=== PATIENT | male | born 1980 | race Caucasian/White ===

== ENCOUNTER → 2017-08-27 | Day surgery (SDC) | payer OTHER ==
[~2017-08-27] MED LIST: BUPIVACAINE HCL 0.5 % INJ/PF 30 ML SDV ONE; METHYLPREDNISOLONE ACETATE INJ 40 MG/1 ML ML ONE
--- NOTE | 2017-08-27 15:53 | RADIOLOGY REPORT (SQ) ---
EXAM DESCRIPTION: INJECT/ASPIR HIP/SHLDR/KNEE; FLUORO/NEEDLE PLACEMENT COMPLETED DATE/TIME: 08/27/2017 1:27 pm REASON FOR STUDY: R SHOULDER PAIN COMPARISON: None. FLUOROSCOPY TIME: 8 seconds 1 digital radiographic image saved to PACS. LIMITATIONS: None. PROCEDURE: SITE OF INJECTION: Posterior right glenohumeral joint LOCALIZING CONTRAST TYPE AND DOSE: 1 mL of Isovue-300 MEDICATION TYPE AND DOSE: 80 mg of Depo-Medrol, 7 mL of 0.5% bupivacaine Using local anesthesia and sterile technique with fluoroscopic guidance, the 22 gauge spinal needle w as advanced into the joint. Iodinated contrast was injected to verify intraarticular placement. This was followed by therapeutic injection of the indicated medications. The needle was removed. There were no immediate complications. Preprocedure pain level: 6/10. Postprocedure pain level: 0/10. IMPRESSION: THERAPEUTIC INJECTION OF THE RIGHT SHOULDER JOINT ABOVE. COMMENT: Patient medication list reviewed: Yes- Quality ID# [id number]:Eligible professional attests to doc umenting in the medical record they obtained, updated, or reviewed the patient's current medications. . Quality ID 145: Final reports for procedures using fluoroscopy that document radiation exposure issa clark, or exposure time and number of fluorographic images (if radiation exposure indices are not avail able) TECHNICAL DOCUMENTATION: JOB ID: [id number] [email or web address]- All Rights Reserved Reading location - IP/workstation name: [facility]
--- NOTE | 2017-08-27 15:53 | RADIOLOGY REPORT (SQ) ---
EXAM DESCRIPTION: INJECT/ASPIR HIP/SHLDR/KNEE; FLUORO/NEEDLE PLACEMENT COMPLETED DATE/TIME: 08/27/2017 1:27 pm REASON FOR STUDY: R SHOULDER PAIN COMPARISON: None. FLUOROSCOPY TIME: 8 seconds 1 digital radiographic image saved to PACS. LIMITATIONS: None. PROCEDURE: SITE OF INJECTION: Posterior right glenohumeral joint LOCALIZING CONTRAST TYPE AND DOSE: 1 mL of Isovue-300 MEDICATION TYPE AND DOSE: 80 mg of Depo-Medrol, 7 mL of 0.5% bupivacaine Using local anesthesia and sterile technique with fluoroscopic guidance, the 22 gauge spinal needle w as advanced into the joint. Iodinated contrast was injected to verify intraarticular placement. This was followed by therapeutic injection of the indicated medications. The needle was removed. There were no immediate complications. Preprocedure pain level: 6/10. Postprocedure pain level: 0/10. IMPRESSION: THERAPEUTIC INJECTION OF THE RIGHT SHOULDER JOINT ABOVE. COMMENT: Patient medication list reviewed: Yes- Quality ID# [id number]:Eligible professional attests to doc umenting in the medical record they obtained, updated, or reviewed the patient's current medications. . Quality ID 145: Final reports for procedures using fluoroscopy that document radiation exposure issa clark, or exposure time and number of fluorographic images (if radiation exposure indices are not avail able) TECHNICAL DOCUMENTATION: JOB ID: [id number] [employer]- All Rights Reserved Reading location - IP/workstation name: [facility]-RR
== END ==
LOC: RAD 12:45
PROVIDERS: ATTEND Family Medicine
DX: M25.511 Pain in right shoulder (principal)
CPT/HCPCS: 20610; 77002; J3490; J1020